=== PATIENT | female | born 1985 | race Caucasian/White ===

== ENCOUNTER 2017-06-05 20:23 | Emergency (ER) | payer SELFPAY ==
--- NOTE | 2017-06-05 21:45 | ED ---
Yadira Serrano Edward, scribed for Luis Jin MD on 06/05/17 at 2041 . Substance Abuse/Use - HPI Summary HPI Summary: 32 y/o female WHIT[place] to the ED s/p opiate overdose. Patient states that she took 1 pill of some unspecified opiate several hours ago. The patient woke up after being given 3 doses of Narcan (total 6 mg) by EMS. 2209 called. PMHx heroin abuse - formerly injecting and is now snorting, per past records. - History Of Current Complaint Stated Complaint: OVERDOSE Time Seen by Provider: 06/05/17 20:34 Hx Obtained From: Patient Onset/Duration of Drug/ETOH Abuse: Hours Ingestion History: Type/Name Of Drug - Unspecified opiate, Amount Ingested - 1 pill, Approximate Time Of Ingestion - Several hours ago - Allergies/Home Medications Allergies/Adverse Reactions: Allergies Allergy/AdvReac Type Severity Reaction Status Date / Time Aspirin Allergy Eyes Verified 10/18/15 11:44 Itchy/Swollen/Red/Watery Codeine Allergy Anaphylatic Verified 10/18/15 11:44 Shock Hydrocodone Allergy Eyes Verified 10/18/15 11:44 Itchy/Swollen/Red/Watery NSAIDs Allergy Eyes Verified 10/18/15 11:44 Itchy/Swollen/Red/Watery PMH/Surg Hx/FS Hx/Imm Hx Previously Healthy: No Endocrine/Hematology History: Denies: Hx Diabetes Cardiovascular History: Denies: Hx Congestive Heart Failure, Hx Hypertension Respiratory History: Reports: Hx Asthma History: Denies: Hx Renal Disease Sensory History: Reports: Hx Contacts or Glasses Opthamlomology History: Reports: Hx Contacts or Glasses - Surgical History Surgery Procedure, Year, and Place: TUBAL LIGATION, - Immunization History Date of Tetanus Vaccine: Unk Date of Influenza Vaccine: None Infectious Disease History: Denies: Traveled Outside the [place] in Last 30 Days - Social History Alcohol Use: None Hx Substance Use: Yes Substance Use Type: Reports: Heroin Substance Use Comment - Amount & Last Used: CURRENTLY SNORTING, FORMERLY INJECTING Smoking Status (MU): Heavy Every Day Tobacco Smoker Type: Cigarettes Review of Systems Constitutional: Negative Eyes: Negative ENT: Negative Cardiovascular: Negative Respiratory: Negative Gastrointestinal: Negative Genitourinary: Negative Musculoskeletal: Negative Skin: Negative Neurological: Negative Psychological: Normal All Other Systems Reviewed And Are Negative: Yes Physical Exam Triage Information Reviewed: Yes Vital Signs On Initial Exam: Initial Vitals Temp Pulse Resp BP Pulse Ox 98.4 F 110 18 111/73 95 06/05/17 20:51 06/05/17 20:51 06/05/17 20:51 06/05/17 20:51 06/05/17 20:51 Vital Signs Reviewed: Yes Appearance: Positive: Well-Appearing, No Pain Distress Skin: Positive: Warm Head/Face: Positive: Normal Head/Face Inspection Eyes: Positive: MARILYN ENT: Positive: Hearing grossly normal Neck: Positive: Supple Respiratory/Lung Sounds: Positive: Clear to Auscultation, Breath Sounds Present Cardiovascular: Positive: RRR Abdomen Description: Positive: Nontender, Soft Bowel Sounds: Positive: Present Musculoskeletal: Positive: Strength/ROM Intact Neurological: Positive: Alert, Oriented to Person Place, Time Psychiatric: Positive: Affect/Mood Appropriate Diagnostics - Vital Signs Vital Signs Temp Pulse Resp BP Pulse Ox 06/05/17 20:51 98.4 F 110 18 111/73 95 - Laboratory Lab Statement: Any lab studies that have been ordered have been reviewed, and results considered in the medical decision making process. Re-Evaluation - Re-Evaluation 1 Re-Evaluation Time: 22:00 Change: Improved - pt remains awake, alert, denies si Course/Dx - Course Assessment/Plan: 32 y/o female presents to the ED c/o overdose of an unspecified opiate. Pt states she took 1 pill a few hours ago. - Diagnoses Provider Diagnoses: Opiate overdose Discharge - Discharge Plan Condition: Stable Disposition: HOME Patient Education Materials: Narcotic Abuse (ED) Referrals: Kilo GARCIA,Jaswinder Abraham [Primary Care Provider] - The documentation as recorded by the Yadira ronquillo Edward accurately reflects the service I personally performed and the decisions made by me, Luis Jin MD.
[2017-06-05 22:14] VITALS: BP 115/65
== END 2017-06-05 22:10 | disposition home or self-care (01) ==
LOC: ED 20:23
DX: T40.601A Poisoning by unspecified narcotics, accidental (unintentional), initial encounter (principal); F17.210 Nicotine dependence, cigarettes, uncomplicated; Z88.5 Allergy status to narcotic agent; J45.909 Unspecified asthma, uncomplicated
CPT/HCPCS: 99283